=== PATIENT | male | born 1980 | race Caucasian/White ===

== ENCOUNTER 2017-10-05 19:33 | Inpatient (IN) | payer BC ==
[~2017-10-05] VITALS: Ht 182.9 cm; Wt 72.7 kg
[~2017-10-05 19:33] MED LIST: IBUPROFEN200 M1 PO; INDOCIN25 MG PO; NORCO 7.5/321 TABLET PO; VIGAMOX 0.60 DROP/3 LEFT EYE
[2017-10-05 20:00] LABS: BASOPHIL (%) 0.4 % (0-1); BASOPHIL COUNT 0.1 K/uL (0-0.1); EOSINOPHIL (%) 3.9 % (0-5); EOSINOPHIL COUNT 0.6 K/uL (0-0.3); HEMATOCRIT 39.5 % (38.0-50.0); HEMOGLOBIN 13.9 G/DL (12.5-16.6); IMMATURE GRANULOCYTE (%) 0.4 % (0.0-0.7); LYMPHOCYTE (%) 12.1 % (15-42); LYMPHOCYTE COUNT 1.9 K/uL (1.0-2.8); MCH 31.1 PG (29.0-34.0); MCHC 35.2 G/DL (30.0-36.0); MCV 88.4 FL (86-99); MONOCYTE (%) 6.5 % (3-12); NEUTROPHIL (%) 76.7 % (45-76); NEUTROPHIL COUNT 12.1 K/uL (1.8-6.4); PLATELET COUNT 319 K/uL (156-360); RBC DIS.WIDTH-CV 12.2 % (11.8-14.6); RBC DIS.WIDTH-SD 39.7 % (39-53); RED BLOOD COUNT 4.47 M/uL (4.00-5.50); WHITE BLOOD COUNT 15.8 K/uL (4.1-10.2)
[2017-10-05 20:08] LABS: AMYLASE 84 IU/L (1-118); CHLORIDE 99 mEq/L (99-109); POTASSIUM 3.3 mEq/L (3.7-5.4); SODIUM 133 mEq/L (136-147)
[2017-10-05 20:10] LABS: GLUCOSE 102 mg/dL (70-99)
[2017-10-05 20:13] LABS: SERUM ETHYL ALCOHOL < 10 mg/dL
[2017-10-05 20:14] LABS: CREATININE 0.9 mg/dL (0.6-1.3); GFR ESTIMATE (CALCULATED) > 59 mL/min/ (58.99-99999)
[2017-10-05 20:15] LABS: UREA NITROGEN (BUN) 8 mg/dL (9-23)
[2017-10-05 20:17] LABS: LIPASE 10 U/L (1.0-51.0)
[2017-10-05] MEDS ORDERED: CYMBALTA60 MG PO (21:48)
[2017-10-05] MEDS ORDERED: WELLBUTRIN100 MG PO (21:49)
[2017-10-06 01:23] LABS: APPEARANCE CLEAR ((CLEAR)); BILIRUBIN NEGATIVE; BLOOD NEGATIVE; COLOR YELLOW ((YELLOW)); GLUCOSE (STRIP) NEGATIVE; KETONES 5; LEUKOCYTES NEGATIVE; NITRITE NEGATIVE; PROTEIN (STRIP) NEGATIVE; SPECIFIC GRAVITY 1.042 (1.000-1.030); UCUL ADDED? NO; UROBILINOGEN 0.2 MG/DL (0.2-1.0)
[2017-10-06 01:31] LABS: AMPHETAMINE NEGATIVE (500 ng/mL); BARBITURATES NEGATIVE (200 ng/mL); BENZODIAZEPINES NEGATIVE (150 ng/mL); BUPRENORPHINE NEGATIVE (10 ng/mL); COCAINE PRESUMPTIVE POSITIVE (150 ng/mL); METHADONE NEGATIVE (200 ng/mL); METHAMPHETAMINE NEGATIVE (500 ng/mL); OPIATES (MORPHINE) PRESUMPTIVE POSITIVE (100 ng/mL); OXYCODONE NEGATIVE (100 ng/mL); PHENCYCLIDINE NEGATIVE (25 ng/mL); PROPOXYPHENE NEGATIVE (300 ng/mL); THC CANNABINOIDS PRESUMPTIVE POSITIVE (50 ng/mL); TRICYCLIC ANTIDEPRESSANTS NEGATIVE (300 ng/mL)
[2017-10-06] MEDS ORDERED: IBUPROFEN800 MG PO (10:49)
[2017-10-06] MEDS ORDERED: PERCOCET 5/31 TABLET PO (10:49)
[2017-10-06] MEDS ORDERED: FLEXERIL10 MG PO (10:49)
== END 2017-10-06 11:51 | disposition home or self-care (01) | DRG 552 ==
LOC: EME 19:33 → EDOF 22:25 → ENRESERV 22:27 → CANRESERV 22:27 → EDOF 10-06 11:51
PROVIDERS: Emergency Medicine
DX: S32.039A Unspecified fracture of third lumbar vertebra, initial encounter for closed fracture (principal); V86.55XA Driver of 3- or 4- wheeled all-terrain vehicle (ATV) injured in nontraffic accident, initial encounter; Z87.891 Personal history of nicotine dependence
CPT/HCPCS: 70450; 71260; 72125; 72129; 72132; 72170; 73552; 73590; 74177; 80048; 81003; 82150; 83690; 84999; 85025; 86850; 86900; 86901; 99281; 99284; G0480; J1170; J1885; J2270; J2405; J3010; J7120